=== PATIENT | male | born 1940 | race Caucasian/White ===

== ENCOUNTER 2017-07-16 08:04 | Day surgery (SDC) | payer MEDICARE, BC ==
[~2017-07-16 08:04] MED LIST: Metoclopramide 10 MG/2 ML SDV IV PRN; Sodium Chloride 0.9% 1,000 ML IV SCH; Sodium Chloride 0.9% 10 ML Syringe FLUSH PRN
[2017-07-16] MEDS ORDERED: Propofol 200 MG/20 ML SDV ONE (09:50)
--- NOTE | 2017-07-16 11:05 | OR ---
DATE OF OPERATION: 07/16/2017 PREOPERATIVE DIAGNOSIS: Screening colonoscopy. POSTOPERATIVE DIAGNOSIS: Screening colonoscopy. PROCEDURE: Colonoscopy. ESTIMATED BLOOD LOSS: None. COMPLICATIONS: None. INDICATION FOR THE PROCEDURE: The patient is a 76-year-old male, who has had a colonoscopy in the last 2 to 3 years, potentially personal history of polyps. He was recommended to have repeat colonoscopy in 2 to 3 years. He is here today for followup. DESCRIPTION OF PROCEDURE: Informed consent was obtained from the patient. The patient was taken to the operating room, placed on table in left lateral decubitus position. Monitored anesthesia care was administered. Digital rectal exam was normal. Colonoscope was then advanced through the anus and directed toward the cecum. Cecum was reached and identified by appendiceal orifice and ileocecal valve. Colonoscope was then slowly withdrawn. The patient was noted to have moderate diverticulosis in the sigmoid colon, otherwise unremarkable. No masses. No polyps. No areas of AV malformations, ischemia, or inflammation. Retroflexion was performed in the rectum, which was also unremarkable. Colonoscope was then withdrawn. FINDINGS: Sigmoid diverticulosis. RECOMMENDATIONS: With his personal history, would recommend repeat colonoscopy in 5 years for further surveillance. KOLTON/ARI /[id number]
[2017-07-16 16:22] VITALS: BP 104/64
== END 2017-07-16 11:50 | disposition home or self-care (01) ==
LOC: LB.SDS 08:04
PROVIDERS: ATTEND Surgery
DX: Z12.11 Encounter for screening for malignant neoplasm of colon (principal); K57.30 Diverticulosis of large intestine without perforation or abscess without bleeding; I10 Essential (primary) hypertension; Z80.0 Family history of malignant neoplasm of digestive organs; Z86.010 Personal history of colon polyps; Z79.899 Other long term (current) drug therapy
CPT/HCPCS: 45378; J2704; J7040

== ENCOUNTER 2018-11-22 09:51 | Emergency (ER) | payer BC, MEDICARE ==
[2018-11-22 11:17] VITALS: BP 144/75; PULSE 86
[2018-11-22] MEDS ORDERED: cefTRIAXone 1 GM Vial IM ONE (11:58)
[2018-11-22] MEDS ORDERED: cefTRIAXone 1 GM Vial ONE (12:09)
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
--- NOTE | 2018-11-22 16:25 | CR ---
Date of Service: 11/22/18 Clinical Data: cough, congestion PA AND LATERAL CHEST: The heart size is normal. The aorta is calcified and ectatic. There is increased density in the left lung base on today's exam consistent with basilar atelectasis or infiltrate. Pneumonia should be considered. The right lung is clear. There are multiple healed rib fractures on the left with adjacent pleural thickening. Some of these are fixed internally. There is slight blunting of the left costophrenic angle consistent with chronic left pleural effusion or pleural scar. No pneumothorax. [id number] [facility]
== END 2018-11-22 12:32 | disposition home or self-care (01) ==
LOC: LB.ED 09:51
DX: J18.9 Pneumonia, unspecified organism (principal); I10 Essential (primary) hypertension; Z79.899 Other long term (current) drug therapy; Z87.891 Personal history of nicotine dependence
CPT/HCPCS: 36415; 71046; 85025; 96372; 99283; J0696; J2001